=== PATIENT | female | born 1960 | race African-American/Black ===

== ENCOUNTER 2016-11-16 20:34 | Emergency (ER) | payer SELFPAY ==
[~2016-11-16] VITALS: Ht 162.6 cm; Wt 82.0 kg
[~2016-11-16 20:34] MED LIST: FS300 PO; GABA-529 PO; NITR-87 PO; QUET25TA PO; VITAMIN B12 PO
[2016-11-16] MEDS ORDERED: SODIUM CHLORIDE 0.9% 1,000 ML IV ONE (23:08)
[2016-11-16 23:51] LABS: BASOPHILS % 0.2 % (0.0-2.0); EOSINOPHILS % 0.8 % (0.0-5.0); HEMATOCRIT. 27.7 % (36.0-48.0); HEMOGLOBIN. 9.9 g/dL (12.0-16.0); LYMPHOCYTES % 35.7 % (20.0-50.0); MEAN CORPUSCULAR VOLUME 123.7 fL (81.0-99.0); MEAN PLATELET VOLUME 7.5 fl (7.4-10.4); MONOCYTES % 5.1 % (2.0-8.0); NEUTROPHILS % 58.2 % (40.0-76.0); PLATELET 226 x1000/uL (130-400); RED BLOOD CELL COUNT 2.24 mill/uL (4.2-5.4); RED CELL DISTRIBUTION WIDTH 24.5 % (11.6-14.6)
[2016-11-17] LABS: PARTIAL THROMBOPLASTIN TIME 25.4 sec (24.0-34.0); PROTHROMBIN TIME 10.8 sec
[2016-11-17 00:04] LABS: CARBON DIOXIDE 23 mEq/L (21-32); CHLORIDE 110 mEq/L (98-107)
[2016-11-17] MEDS ORDERED: IBUPROFEN 800MG TABLET PO ONE (02:00)
[2016-11-17 02:51] VITALS: BP 138/102
== END 2016-11-17 06:16 | disposition home or self-care (01) ==
LOC: ER 11-17 06:08
DX: R55 Syncope and collapse (principal); D53.9 Nutritional anemia, unspecified; R20.0 Anesthesia of skin; M79.672 Pain in left foot; M79.671 Pain in right foot; I10 Essential (primary) hypertension; E11.9 Type 2 diabetes mellitus without complications; D57.3 Sickle-cell trait
CPT/HCPCS: 36415; 71010; 80053; 85025; 85610; 85730; 86850; 86900; 86901; 93005; 96360; 96361; 99285; J7030; Z7610